=== PATIENT | male | born 1960 | race Caucasian/White ===

== ENCOUNTER → 2016-04-17 | Outpatient (REF) | payer OTHER ==
[~2016-04-17] MED LIST: AMBI10TA PO; ANDR1.624 TD; ASPI1TAB PO; STRITAB PO
[2016-04-17 20:17] LABS: ALBUMIN 4.4 GM/DL (3.2-5.2); ALBUMIN/GLOBULIN RATIO 1.52 (1.00-1.93); ALKALINE PHOSPHATASE 39 U/L (45-117); ALT/SGPT 46 U/L (12-78); ANION GAP 7 MEQ/L (8-16); AST/SGOT 25 U/L (15-37); BILIRUBIN,TOTAL 0.3 MG/DL (0.2-1.0); BLOOD UREA NITROGEN 26 MG/DL (7-18); CALCIUM LEVEL 9.3 MG/DL (8.5-10.1); CARBON DIOXIDE LEVEL 28 MEQ/L (21-32); CHLORIDE LEVEL 106 MEQ/L (98-107); CREATININE FOR GFR 1.46 MG/DL (0.70-1.30); GLOMERULAR FILTRATION RATE 53.4 (>56); GLUCOSE, FASTING 86 MG/DL (70-105); POTASSIUM SERUM 4.1 MEQ/L (3.5-5.1); SODIUM LEVEL 141 MEQ/L (136-145); TOTAL PROTEIN 7.3 GM/DL (6.4-8.2)
== END ==
LOC: M SFHCPLAZ 15:28
PROVIDERS: ATTEND Internal Medicine Infectious Disease
DX: B20 Human immunodeficiency virus [HIV] disease (principal)

== ENCOUNTER → 2016-08-05 | Outpatient (CLI) | payer BC ==
[~2016-08-05] MED LIST changes: +GENV1TAB PO
[2016-08-05 17:54] LABS: BASO % 0.1 % (0.0-1.0); EOS # 0.2 K/mm3 (0.0-0.50); EOS % 2.3 % (0.0-3.0); LARGE UNSTAINED CELL # 0.2 K/mm3 (0.0-0.4); LARGE UNSTAINED CELL % 2.3 % (0.0-4.0); LYMPH # 2.1 K/mm3 (1.5-4.5); LYMPH % 31.7 % (24.0-44.0); MEAN CORPUSCULAR HEMOGLOBIN 31.3 pg (27.0-33.0); MEAN CORPUSCULAR HGB CONC 34.1 g/dl (32.0-36.5); MEAN CORPUSCULAR VOLUME 91.8 fl (80.0-96.0); MONO # 0.4 K/mm3 (0.0-0.8); MONO % 5.6 % (0.0-5.0); NEUTROPHILS # 3.9 K/mm3 (1.8-7.7); NEUTROPHILS % 57.9 % (36.0-66.0); PLATELET COUNT, AUTOMATED 227 k/mm3 (150-450); RED CELL DISTRIBUTION WIDTH 12.5 % (11.5-14.5); WHITE BLOOD COUNT 6.8 K/mm3 (4.0-10.0)
[2016-08-05 18:07] LABS: ANION GAP 7 MEQ/L (8-16); BLOOD UREA NITROGEN 18 MG/DL (7-18); CARBON DIOXIDE LEVEL 29 MEQ/L (21-32); CHLORIDE LEVEL 106 MEQ/L (98-107); CREATININE FOR GFR 1.34 MG/DL (0.70-1.30); GLOMERULAR FILTRATION RATE 58.9 (>56); GLUCOSE, FASTING 98 MG/DL (70-105); SODIUM LEVEL 142 MEQ/L (136-145)
[2016-08-05 18:08] LABS: ALBUMIN 4.2 GM/DL (3.2-5.2); ALBUMIN/GLOBULIN RATIO 1.27 (1.00-1.93); ALKALINE PHOSPHATASE 36 U/L (45-117); ALT/SGPT 40 U/L (12-78); AST/SGOT 18 U/L (15-37); BILIRUBIN,TOTAL 0.3 MG/DL (0.2-1.0); CALCIUM LEVEL 9.3 MG/DL (8.5-10.1); TOTAL PROTEIN 7.5 GM/DL (6.4-8.2)
[2016-08-05 19:08] LABS: ERYTHROCYTE SEDIMENTATION RATE 3 mm/hr (0-20)
[2016-08-08 14:16] LABS: Lyme Disease IgG/IgM Antibodie <0.91 ISR (0.00-0.90); Lyme Disease IgM Ab Quantitati <0.80 index (0.00-0.79)
== END ==
LOC: M WUC 14:37
PROVIDERS: ATTEND Internal Medicine Infectious Disease
DX: M25.50 Pain in unspecified joint (principal); R21 Rash and other nonspecific skin eruption; E29.1 Testicular hypofunction
CPT/HCPCS: 36415; 80053; 84402; 84403; 85025; 85652; 86038; 86140; 86200; 86431; 86617; 86780; G0103

== ENCOUNTER → 2016-10-14 | Outpatient (CLI) | payer BC ==
[~2016-10-14] VITALS: Ht 177.8 cm; Wt 74.8 kg
[~2016-10-14] MED LIST changes: +NS 1,000 ML IV ONE; +PROPOFOL 200 MG/20 ML VIAL As Ordered ONE; -STRITAB PO; +STRITAB2 PO
--- NOTE | 2016-10-14 11:17 | ROOR ---
Patient Name: Jose Mohan Procedure Date: 10/14/2016 10:59 AM Date of : 1960 Age: 56 Room: [facility] Gender: Male Note Status: Finalized Procedure: Flexible Sigmoidoscopy Indications: surveillance/Personal history of anal/rectal condyloma. Providers: Rosales ROQUE MD Referring MD: Patsy PHAM MD. Requesting Provider: Medicines: Monitored Anesthesia Care Complications: No immediate complications. Procedure: Pre-Anesthesia Assessment: - The heart rate, respiratory rate, oxygen saturations, blood pressure, adequacy of pulmonary ventilation, and response to care were monitored throughout the procedure. The Colonoscope was introduced through the anus and advanced to 20 cm from the anal verge. The flexible sigmoidoscopy was accomplished without difficulty. The patient tolerated the procedure well. The quality of the bowel preparation was good. Findings: The perianal and digital rectal examinations were normal. Pertinent negatives include no palpable rectal lesions. The area from 0 to 20 cm proximal to the anus appeared normal. Internal hemorrhoids were found during retroflexion. The hemorrhoids were medium-sized. Impression: - Internal hemorrhoids. - The area from 0 to 20 cm proximal to the anus is normal in forward and retroflexed view. - No specimens collected. Recommendation: - Repeat flexible sigmoidoscopy in 3 years for surveillance. Rosales Roque MD Rosales ROQUE MD 10/14/2016 11:17:03 AM This report has been signed electronically. Number of Addenda: 0 Note Initiated On: 10/14/2016 10:59 AM Estimated Blood Loss: Estimated blood loss: none.
[2016-10-14 11:29] VITALS: BP 129/86
== END | disposition home or self-care (01) ==
LOC: M OPP 09:59
PROVIDERS: ATTEND Internal Medicine Gastroenterology
DX: Z09 Encounter for follow-up examination after completed treatment for conditions other than malignant neoplasm (principal); A63.0 Anogenital (venereal) warts; K64.8 Other hemorrhoids; Z86.018 Personal history of other benign neoplasm; R00.8 Other abnormalities of heart beat; M10.9 Gout, unspecified; Z86.79 Personal history of other diseases of the circulatory system; B20 Human immunodeficiency virus [HIV] disease; Z88.2 Allergy status to sulfonamides; Z79.899 Other long term (current) drug therapy

== ENCOUNTER → 2016-11-20 | Outpatient (REF) | payer BC, OTHER ==
[~2016-11-20] MED LIST changes: -NS 1,000 ML IV ONE; -PROPOFOL 200 MG/20 ML VIAL As Ordered ONE
[2016-11-23 08:06] LABS: CHLAMYDIA PHARYNGEAL APTIMA Negative (Negative); GC PHARYNGEAL APTIMA Negative (Negative)
[2016-11-27 14:13] LABS: CHLAMYDIA RECTAL APTIMA Negative (Negative); GC RECTAL APTIMA Negative (Negative)
== END ==
LOC: M SFHCPLAZ 11:32
PROVIDERS: ATTEND Internal Medicine Infectious Disease
DX: B20 Human immunodeficiency virus [HIV] disease (principal)

== ENCOUNTER → 2017-05-13 | Outpatient (CLI) | payer BC, OTHER ==
[2017-05-13 20:42] LABS: ALBUMIN 4.5 GM/DL (3.2-5.2); ALBUMIN/GLOBULIN RATIO 1.41 (1.00-1.93); ALKALINE PHOSPHATASE 39 U/L (45-117); ALT/SGPT 47 U/L (12-78); ANION GAP 5 MEQ/L (8-16); AST/SGOT 29 U/L (7-37); BILIRUBIN,TOTAL 0.4 MG/DL (0.2-1.0); BLOOD UREA NITROGEN 21 MG/DL (7-18); CALCIUM LEVEL 9.6 MG/DL (8.5-10.1); CARBON DIOXIDE LEVEL 32 MEQ/L (21-32); CHLORIDE LEVEL 103 MEQ/L (98-107); CREATININE FOR GFR 1.31 MG/DL (0.70-1.30); GLOMERULAR FILTRATION RATE > 60.0 (>56); GLUCOSE, FASTING 91 MG/DL (70-100); POTASSIUM SERUM 4.1 MEQ/L (3.5-5.1); SODIUM LEVEL 140 MEQ/L (136-145); TOTAL PROTEIN 7.7 GM/DL (6.4-8.2)
[2017-05-18 14:21] LABS: % CD8 Pos Lymph 39.9 % (12.0-35.5); %CD4 Pos Lymphs 38.2 % (30.8-58.5); ABS Eosinophils 0.1 x10E3/uL (0.0-0.4); ABS Lymphs 2.5 x10E3/uL (0.7-3.1); ABS Monocytes 0.7 x10E3/uL (0.1-0.9); ABS Neutophils 3.4 x10E3/uL (1.4-7.0); Abs CD4 Helper 955 /uL (359-1519); Abs CD8 Suppres 998 /uL (109-897); CD4/CD8 Ratio 0.96 (0.92-3.72); Eosinophils 1 % (Not Estab.); HCT 43.5 % (37.5-51.0); HGB 14.5 g/dL (13.0-17.7); HIV-1 RNA PCR QUANT 1 LC162545 <20 copies/mL (.); Immature Grans 0 % (Not Estab.); Lymphocytes 37 % (Not Estab.); MCH 30.5 pg (26.6-33.0); MCHC 33.3 g/dL (31.5-35.7); MCV 91 fL (79-97); Monocytes 11 % (Not Estab.); Neutrophils 51 % (Not Estab.); Platelets 190 x10E3/uL (150-379); RBC 4.76 x10E6/uL (4.14-5.80); RDW 13.7 % (12.3-15.4); WBC 6.7 x10E3/uL (3.4-10.8)
== END ==
LOC: M WUC 16:16
DX: B20 Human immunodeficiency virus [HIV] disease (principal)
CPT/HCPCS: 80053

== ENCOUNTER → 2017-06-09 | Outpatient (REF) | payer BC, OTHER | LOC: M SFHCPLAZ 15:26 | DX: J02.9 Acute pharyngitis, unspecified (principal) | CPT/HCPCS: 87591 ==

== ENCOUNTER → 2017-11-25 | Outpatient (CLI) | payer BC ==
[2017-11-25 17:36] LABS: TOTAL T3 96.9 NG/DL (60.0-181.0)
[2017-11-25 17:47] LABS: ALBUMIN 4.2 GM/DL (3.2-5.2); ALBUMIN/GLOBULIN RATIO 1.24 (1.00-1.93); ALKALINE PHOSPHATASE 41 U/L (45-117); ALT/SGPT 35 U/L (12-78); ANION GAP 7 MEQ/L (8-16); AST/SGOT 22 U/L (7-37); BILIRUBIN,TOTAL 0.5 MG/DL (0.2-1.0); BLOOD UREA NITROGEN 21 MG/DL (7-18); CALCIUM LEVEL 9.3 MG/DL (8.5-10.1); CARBON DIOXIDE LEVEL 29 MEQ/L (21-32); CHLORIDE LEVEL 104 MEQ/L (98-107); FREE T4 0.89 NG/DL (0.76-1.46); GLOMERULAR FILTRATION RATE > 60.0 (>56); GLUCOSE, FASTING 86 MG/DL (70-100); POTASSIUM SERUM 4.4 MEQ/L (3.5-5.1); SODIUM LEVEL 140 MEQ/L (136-145); TOTAL PROTEIN 7.6 GM/DL (6.4-8.2)
[2017-12-01 00:07] LABS: % CD8 Pos Lymph 42.7 % (12.0-35.5); ABS Eosinophils 0.1 x10E3/uL (0.0-0.4); ABS Lymphs 2.3 x10E3/uL (0.7-3.1); ABS Monocytes 0.4 x10E3/uL (0.1-0.9); Abs CD4 Helper 874 /uL (359-1519); Abs CD8 Suppres 982 /uL (109-897); CD4/CD8 Ratio 0.89 (0.92-3.72); Eosinophils 1 % (Not Estab.); HCT 44.4 % (37.5-51.0); HIV-1 RNA PCR QUANT 2 LC550285 <20 copies/mL (.); Immature Grans 0 % (Not Estab.); Lymphocytes 34 % (Not Estab.); MCH 30.7 pg (26.6-33.0); MCHC 33.8 g/dL (31.5-35.7); MCV 91 fL (79-97); Monocytes 6 % (Not Estab.); Neutrophils 59 % (Not Estab.); Platelets 225 x10E3/uL (150-379); RBC 4.88 x10E6/uL (4.14-5.80); RDW 13.7 % (12.3-15.4); WBC 6.8 x10E3/uL (3.4-10.8)
== END ==
LOC: M WUC 14:22
DX: B20 Human immunodeficiency virus [HIV] disease (principal); E04.1 Nontoxic single thyroid nodule
CPT/HCPCS: 84443

== ENCOUNTER → 2017-12-31 | Outpatient (REF) | payer BC | LOC: M LAB REF 15:52 | DX: E04.1 Nontoxic single thyroid nodule (principal) | CPT/HCPCS: 88173 ==

== ENCOUNTER → 2018-03-17 | Outpatient (REF) | payer BC, OTHER | LOC: M SFHCPLAZ 15:17 | DX: A09 Infectious gastroenteritis and colitis, unspecified (principal) | CPT/HCPCS: 87507 ==

== ENCOUNTER → 2018-04-22 | Outpatient (REF) | payer BC, OTHER ==
[2018-04-24 15:16] LABS: CHLAMYDIA PHARYNGEAL APTIMA Negative (Negative); GC PHARYNGEAL APTIMA Negative (Negative)
[2018-04-26 10:47] LABS: CHLAMYDIA RECTAL APTIMA Negative (Negative); GC RECTAL APTIMA Negative (Negative)
== END ==
LOC: M SFHCPLAZ 10:17
PROVIDERS: ATTEND Internal Medicine Infectious Disease
DX: B20 Human immunodeficiency virus [HIV] disease (principal)

== ENCOUNTER → 2018-05-03 | Outpatient (CLI) | payer BC, OTHER ==
[2018-05-03 19:03] LABS: ALBUMIN 4.2 GM/DL (3.2-5.2); BILIRUBIN,TOTAL 0.3 MG/DL (0.2-1.0); CALCIUM LEVEL 9.1 MG/DL (8.5-10.1); CHOLESTEROL RISK RATIO 5.555 (<5); CREATININE FOR GFR 1.33 MG/DL (0.70-1.30); POTASSIUM SERUM 4.5 MEQ/L (3.5-5.1); TOTAL PROTEIN 7.4 GM/DL (6.4-8.2)
[2018-05-07 08:07] LABS: % CD8 Pos Lymph 37.8 % (12.0-35.5); %CD4 Pos Lymphs 43.4 % (30.8-58.5); ABS Eosinophils 0.2 x10E3/uL (0.0-0.4); ABS Lymphs 2.5 x10E3/uL (0.7-3.1); ABS Monocytes 0.8 x10E3/uL (0.1-0.9); ABS Neutophils 2.3 x10E3/uL (1.4-7.0); Abs CD4 Helper 1085 /uL (359-1519); Abs CD8 Suppres 945 /uL (109-897); CD4/CD8 Ratio 1.15 (0.92-3.72); Eosinophils 3 % (Not Estab.); HCT 46.1 % (37.5-51.0); HGB 15.3 g/dL (13.0-17.7); HIV-1 RNA BY PCR Negative (Negative); Immature Grans 0 % (Not Estab.); Lymphocytes 43 % (Not Estab.); MCH 30.7 pg (26.6-33.0); MCHC 33.2 g/dL (31.5-35.7); MCV 92 fL (79-97); Monocytes 14 % (Not Estab.); Neutrophils 40 % (Not Estab.); Platelets 247 x10E3/uL (150-379); RBC 4.99 x10E6/uL (4.14-5.80); RDW 13.5 % (12.3-15.4); TESTOSTERONE FREE (DIRECT) 15.2 pg/mL (7.2-24.0); WBC 5.7 x10E3/uL (3.4-10.8)
== END ==
LOC: M WUC 15:18
PROVIDERS: ATTEND Internal Medicine Infectious Disease
DX: B20 Human immunodeficiency virus [HIV] disease (principal); I48.92 Unspecified atrial flutter; E29.1 Testicular hypofunction; Z12.5 Encounter for screening for malignant neoplasm of prostate
CPT/HCPCS: 36415; 80053; 80061; 84402; 84403; 86360; 86480; 87535; G0103

== ENCOUNTER 2018-06-08 06:07 | Day surgery (SDC) | payer BC ==
[~2018-06-08] VITALS: Ht 177.8 cm; Wt 77.6 kg
[2018-06-08] MEDS ORDERED: LIDOCAINE 2% W/EPIN INJ 20ML **PRES FREE As Ordered ONE (06:17)
[2018-06-08] MEDS ORDERED: SODIUM BICARBONATE 8.4% INJ 50MEQ 50 ML VIAL As Ordered ONE (06:17)
[2018-06-08] MEDS ORDERED: TOBRADEX OPHTH OINT 3.5 GM As Ordered ONE (06:18)
[2018-06-08] MEDS ORDERED: POVIDONE-IODINE 5% OPHTH PREP SOL 30ML As Ordered ONE (06:22)
[2018-06-08] MEDS ORDERED: LIDOCAINE 3.5 % 1ML OPHTH TOPICAL GEL OU ONE (07:00)
[2018-06-08] MEDS ORDERED: fentaNYL 100 MCG/2 ML INJECTION (J3010) As Ordered ONE ×2 (07:11→07:34)
[2018-06-08] MEDS ORDERED: ONDANSETRON 4MG/2ML VIAL (J2405) As Ordered ONE (07:12)
[2018-06-08] MEDS ORDERED: dexameTHASONE 4 MG/ML 1ML VIAL (J1100) As Ordered ONE (07:12)
[2018-06-08] MEDS ORDERED: PROPOFOL 200 MG/20 ML VIAL As Ordered ONE ×2 (07:12→07:34)
[2018-06-08] MEDS ORDERED: MIDAZOLAM INJ 2 MG/2 ML VIAL (J2250) As Ordered ONE ×2 (07:12→08:11)
[2018-06-08] MEDS ORDERED: LIDOCAINE 2% INJ 100 MG/5 ML SDV (FOR ANES.) As Ordered ONE (07:12)
[2018-06-08] MEDS ORDERED: ROCURONIUM BROMIDE 50 MG/5 ML VIAL As Ordered ONE (07:17)
[2018-06-08 08:58] VITALS: BP 124/83
--- NOTE | 2018-06-08 14:29 | RO ---
DATE OF PROCEDURE: 06/08/2018 PREPROCEDURE DIAGNOSIS: Ptosis and dermatochalasis both upper lids. POSTPROCEDURE DIAGNOSIS: Ptosis and dermatochalasis both upper lids. PROCEDURE: Ptosis repair and blepharoplasty both upper lids. SURGEON: Dr. Jamaal Mitchell [employer] SCHOOL PROFESSIONAL: None. ANESTHESIA: COMPLICATIONS: None. INDICATION: Heavy lids interfering with daily activities. DESCRIPTION OF PROCEDURE: The patient was brought to the operating room and laid in supine position. both eyes were prepped and draped in a sterile fashion for lid surgery, following which, both upper lids were marked with a sterile marker. Subcutaneous lidocaine 2% and 1:100,000 epinephrine was then injected in both upper lids for local anesthesia. After waiting for a few minutes, the attention was first diverted to the right upper lid where the incision was made with the help of the electrocautery along the premarked margins. The skin was excised. Deeper dissection was carried out to access the medial and lateral fat pads which were excised for identification of the dehisced levator aponeurosis. This aponeurosis was then reattached using #6-0 nylon sutures. Lid position was noted to be excellent. The wound was closed using #6-0 nylon suture. Exactly the same procedure was repeated for the left upper lid. At then of the case, ice packs were applied and the patient was returned to the recovery room in stable condition. Hemostasis throughout the case was obtained as needed with the help of the electrocautery.
== END 2018-06-08 09:06 | disposition home or self-care (01) ==
LOC: M SDC 06:07
PROVIDERS: ATTEND Ophthalmology
DX: H02.403 Unspecified ptosis of bilateral eyelids (principal); H02.831 Dermatochalasis of right upper eyelid; H02.834 Dermatochalasis of left upper eyelid; B20 Human immunodeficiency virus [HIV] disease; I48.92 Unspecified atrial flutter; E03.9 Hypothyroidism, unspecified; A63.0 Anogenital (venereal) warts; Z88.2 Allergy status to sulfonamides; Z79.899 Other long term (current) drug therapy
CPT/HCPCS: 67904; 88302; J2250; J3010

== ENCOUNTER → 2018-06-18 | Outpatient (CLI) | payer BC ==
--- NOTE | 2018-06-24 13:14 | DEXA ---
AP SPINE L1 - L4 1.186 -0.1 -0.1 LT FEMUR TOTAL 0.918 -0.7 -0.8 LT NECK 0.809 -1.7 -1.2 RT FEMUR TOTAL 0.900 -0.9 -1.0 RT NECK 0.830 -1.5 -1.0 TOTAL BODY TOTAL OTHER COMMENTS: Normal bone densitometry of the spine and hips. Normal bone densitometry of the spine. There is low bone density of the left hip based on femoral neck T score -1.7 left. There is low bone density of the right hip based on femoral neck T score -1.5 right. FOLLOW-UP: Recommendation for the next bone density exam: 2 years. ANDRE
== END ==
LOC: M WHC 08:00
PROVIDERS: ATTEND Internal Medicine Infectious Disease
DX: E29.1 Testicular hypofunction (principal); M85.851 Other specified disorders of bone density and structure, right thigh; M85.852 Other specified disorders of bone density and structure, left thigh

== ENCOUNTER → 2018-12-03 | Outpatient (CLI) | payer BC, OTHER ==
[~2018-12-03] MED LIST changes: -ASPI1TAB PO; +ASPI81TA26 PO; +PROHANCE 279.3MG/ML 15ML VIAL (A9576) As Ordered ONE
--- NOTE | 2018-12-03 09:42 | REP ---
MRI of the cervical spine without contrast Indication: DDD. Comparison: CT of the cervical spine of 04/19/2014. Technique: MRI of the cervical spine was performed utilizing sagittal T1 FLAIR, STIR, and T2 weighted imaging as well as axial T1 and T2-weighted imaging. No intravenous contrast was administered. Findings: There is normal alignment and curvature of the cervical spine. Vertebral body heights are maintained. There is heterogeneity of the bone marrow without suspicious focal lesion. There is no bone marrow edema. The visualized spinal cord is normal in signal intensity. The paraspinal soft tissues are within normal limits. Level specific observations: C5-C6: Mild disc bulge. Right uncovertebral joint hypertrophy. No significant spinal canal stenosis or left neural foraminal narrowing . Right neural foraminal narrowing. C6-C7: Mild disc bulge. Ligamentum flavum thickening. No significant spinal canal stenosis or neural foraminal compromise. Remaining disc levels are within normal limits. Impression: Mild cervical spondylosis with right neural foraminal narrowing and C5-C6. Electronically Signed by Helder Arias MD 12/03/2018 09:34 A
== END ==
LOC: M RAD 07:13
PROVIDERS: ATTEND Internal Medicine Infectious Disease
DX: M50.30 Other cervical disc degeneration, unspecified cervical region (principal)

== ENCOUNTER → 2019-05-06 | Outpatient (REF) | payer BC, OTHER ==
[~2019-05-06] MED LIST changes: -PROHANCE 279.3MG/ML 15ML VIAL (A9576) As Ordered ONE
[2019-05-06 19:05] LABS: ALBUMIN 4.4 GM/DL (3.2-5.2); BILIRUBIN,TOTAL 0.5 MG/DL (0.2-1.0); CALCIUM LEVEL 9.5 MG/DL (8.5-10.1); CREATININE FOR GFR 1.36 MG/DL (0.70-1.30); GLOMERULAR FILTRATION RATE 57.3 (>56); POTASSIUM SERUM 3.8 MEQ/L (3.5-5.1)
[2019-05-06 19:07] LABS: APPEARANCE, URINE CLOUDY (CLEAR); BACTERIA, URINE AUTO 1+ (NEGATIVE); BILIRUBIN, URINE AUTO NEGATIVE (NEGATIVE); BLOOD, URINE BLOOD 2+ (NEGATIVE); COLOR, URINE YELLOW (YELLOW); GLUCOSE, URINE (UA) AUTO NEGATIVE (NEGATIVE); KETONE, URINE AUTO NEGATIVE (NEGATIVE); LEUKOCYTE ESTERASE, URINE AUTO 3+ (NEGATIVE); MUCUS, URINE SMALL (NEGATIVE); NITRITE, URINE AUTO POSITIVE (NEGATIVE); PROTEIN, URINE AUTO NEGATIVE (NEGATIVE); RBC, URINE AUTO 10 /HPF (0-3); SPECIFIC GRAVITY URINE AUTO 1.005 (1.002-1.035); SQUAMOUS EPITHELIAL CELL UR AU 0 /HPF (0-6); UROBILINOGEN, URINE AUTO 0.2 mg/dL (0.0-2.0); WBC, URINE AUTO TNTC /HPF (0-3)
[2019-05-06 20:21] LABS: CHLAMYDIA DNA AMPLIFICATION NEGATIVE (NEGATIVE); GC DNA AMPLIFICATION NEGATIVE (NEGATIVE)
[2019-05-09 00:07] LABS: %CD4 Pos Lymphs 39.4 % (30.8-58.5); ABS Eosinophils 0.1 x10E3/uL (0.0-0.4); ABS Lymphs 2.7 x10E3/uL (0.7-3.1); ABS Monocytes 0.8 x10E3/uL (0.1-0.9); Abs CD4 Helper 1064 /uL (359-1519); Abs CD8 Suppres 1134 /uL (109-897); CD4/CD8 Ratio 0.94 (0.92-3.72); Eosinophils 2 % (Not Estab.); HCT 44.1 % (37.5-51.0); HGB 15.1 g/dL (13.0-17.7); Immature Grans 0 % (Not Estab.); Lymphocytes 41 % (Not Estab.); MCH 30.8 pg (26.6-33.0); MCHC 34.2 g/dL (31.5-35.7); MCV 90 fL (79-97); Monocytes 12 % (Not Estab.); Neutrophils 45 % (Not Estab.); Platelets 282 x10E3/uL (150-450); RDW 13.7 % (11.6-15.4); WBC 6.6 x10E3/uL (3.4-10.8)
== END ==
LOC: M SFHCPLAZ 15:29
PROVIDERS: ATTEND Internal Medicine Infectious Disease
DX: B20 Human immunodeficiency virus [HIV] disease (principal); R30.0 Dysuria

== ENCOUNTER → 2019-05-10 | Outpatient (REF) | payer BC, OTHER | LOC: M WUC 18:03 | PROVIDERS: ATTEND Internal Medicine Infectious Disease | DX: B20 Human immunodeficiency virus [HIV] disease (principal) ==

== ENCOUNTER → 2019-06-07 | Outpatient (CLI) | payer BC ==
[2019-06-07 16:20] LABS: C REACTIVE PROTEIN QUANTITATIV 4.02 MG/DL (0.00-0.30); CHOLESTEROL LEVEL 204 MG/DL (<200); CHOLESTEROL RISK RATIO 3.642 (<5); HDL CHOLESTEROL 56 MG/DL (>40); LDL CHOLESTEROL 128 MG/DL (<100); NON-HDL-C 148 MG/DL; RHEUMATOID FACTOR QUANT < 10.0 IU/ML (<15.0); TRIGLYCERIDES LEVEL 99 MG/DL (<150)
[2019-06-07 16:32] LABS: APPEARANCE, URINE CLOUDY (CLEAR); BACTERIA, URINE AUTO NEGATIVE (NEGATIVE); BILIRUBIN, URINE AUTO NEGATIVE (NEGATIVE); BLOOD, URINE BLOOD 2+ (NEGATIVE); COLOR, URINE YELLOW (YELLOW); GLUCOSE, URINE (UA) AUTO NEGATIVE (NEGATIVE); KETONE, URINE AUTO NEGATIVE (NEGATIVE); LEUKOCYTE ESTERASE, URINE AUTO 3+ (NEGATIVE); MUCUS, URINE SMALL (NEGATIVE); NITRITE, URINE AUTO NEGATIVE (NEGATIVE); PROTEIN, URINE AUTO NEGATIVE (NEGATIVE); RBC, URINE AUTO 26 /HPF (0-3); SPECIFIC GRAVITY URINE AUTO 1.009 (1.002-1.035); SQUAMOUS EPITHELIAL CELL UR AU 0 /HPF (0-6); UROBILINOGEN, URINE AUTO 0.2 mg/dL (0.0-2.0); WBC, URINE AUTO TNTC /HPF (0-3)
[2019-06-07 16:46] LABS: TOTAL 25(OH) VITAMIN D 21.1 NG/ML (30.0-100.0)
[2019-06-10 00:08] LABS: ANA (HEP2) Negative (.); Lyme Disease IgG/IgM Antibodie <0.91 ISR (0.00-0.90); Lyme Disease IgM Ab Quantitati <0.80 index (0.00-0.79); TESTOSTERONE FREE (DIRECT) 6.9 pg/mL (7.2-24.0)
== END ==
LOC: M WUC 14:07
PROVIDERS: ATTEND Internal Medicine Infectious Disease
DX: E78.5 Hyperlipidemia, unspecified (principal); Z12.5 Encounter for screening for malignant neoplasm of prostate; M25.50 Pain in unspecified joint; B20 Human immunodeficiency virus [HIV] disease
CPT/HCPCS: 36415; 80061; 81001; 82306; 84402; 84403; 86038; 86140; 86431; 86617; G0103

== ENCOUNTER → 2019-08-09 | Outpatient (REF) | payer BC, OTHER ==
[2019-08-09 18:58] LABS: APPEARANCE, URINE HAZY (CLEAR); BACTERIA, URINE AUTO NEGATIVE (NEGATIVE); BILIRUBIN, URINE AUTO NEGATIVE (NEGATIVE); BLOOD, URINE BLOOD 3+ (NEGATIVE); COLOR, URINE YELLOW (YELLOW); GLUCOSE, URINE (UA) AUTO NEGATIVE (NEGATIVE); KETONE, URINE AUTO NEGATIVE (NEGATIVE); LEUKOCYTE ESTERASE, URINE AUTO TRACE (NEGATIVE); NITRITE, URINE AUTO NEGATIVE (NEGATIVE); PROTEIN, URINE AUTO 1+ mg/dL (NEGATIVE); RBC, URINE AUTO TNTC /HPF (0-3); SPECIFIC GRAVITY URINE AUTO 1.012 (1.002-1.035); SQUAMOUS EPITHELIAL CELL UR AU 0 /HPF (0-6); UROBILINOGEN, URINE AUTO 0.2 mg/dL (0.0-2.0); WBC, URINE AUTO 20 /HPF (0-3)
[2019-08-09 21:05] LABS: CHLAMYDIA DNA AMPLIFICATION NEGATIVE (NEGATIVE); GC DNA AMPLIFICATION NEGATIVE (NEGATIVE)
== END ==
LOC: M SFHCPLAZ 17:30
PROVIDERS: ATTEND Internal Medicine Infectious Disease
DX: R82.998 Other abnormal findings in urine (principal)

== ENCOUNTER → 2019-08-31 | Outpatient (REF) | payer BC, OTHER ==
[2019-08-31 17:22] LABS: APPEARANCE, URINE HAZY (CLEAR); BACTERIA, URINE AUTO NEGATIVE (NEGATIVE); BILIRUBIN, URINE AUTO NEGATIVE (NEGATIVE); BLOOD, URINE BLOOD 3+ (NEGATIVE); COLOR, URINE YELLOW (YELLOW); GLUCOSE, URINE (UA) AUTO NEGATIVE (NEGATIVE); KETONE, URINE AUTO NEGATIVE (NEGATIVE); LEUKOCYTE ESTERASE, URINE AUTO TRACE (NEGATIVE); NITRITE, URINE AUTO NEGATIVE (NEGATIVE); PROTEIN, URINE AUTO NEGATIVE (NEGATIVE); RBC, URINE AUTO TNTC /HPF (0-3); SPECIFIC GRAVITY URINE AUTO 1.011 (1.002-1.035); SQUAMOUS EPITHELIAL CELL UR AU 0 /HPF (0-6); UROBILINOGEN, URINE AUTO 0.2 mg/dL (0.0-2.0); WBC, URINE AUTO 13 /HPF (0-3)
== END ==
LOC: M SMT 16:31
PROVIDERS: ATTEND Nurse Practitioner Women's Health
DX: R31.0 Gross hematuria (principal)

== ENCOUNTER → 2019-09-06 | Outpatient (CLI) | payer BC, OTHER ==
[2019-09-06 17:20] LABS: BLOOD UREA NITROGEN 17 MG/DL (7-18); CALCIUM LEVEL 9.4 MG/DL (8.5-10.1); CARBON DIOXIDE LEVEL 29 MEQ/L (21-32); CHLORIDE LEVEL 104 MEQ/L (98-107); CREATININE FOR GFR 1.25 MG/DL (0.70-1.30); GLOMERULAR FILTRATION RATE > 60.0 (>56); GLUCOSE, FASTING 72 MG/DL (70-100); SODIUM LEVEL 139 MEQ/L (136-145)
== END ==
LOC: M WUC 14:42
PROVIDERS: ATTEND Nurse Practitioner Women's Health
DX: R31.0 Gross hematuria (principal)

== ENCOUNTER → 2019-09-20 | Outpatient (CLI) | payer BC ==
[~2019-09-20] MED LIST changes: +BIKT1TAB PO; +SILD100T PO
--- NOTE | 2019-09-20 17:09 | REP ---
Clinical: Preoperative assessment Comparison: 12/18/2014 . Technique: PA and lateral. Findings: The mediastinum and cardiac silhouette are normal. The lung smith are clear and without acute consolidation, effusion, or pneumothorax. The skeletal structures are intact and normal. Impression: 1. No acute cardiopulmonary process. Electronically Signed by Ramiro Senior MD 09/20/2019 05:01 P
[2019-09-20 17:24] LABS: HEMATOCRIT 44.4 % (42.0-52.0); HEMOGLOBIN 15.1 g/dl (13.5-17.5); MEAN CORPUSCULAR HEMOGLOBIN 30.8 pg (27.0-33.0); MEAN CORPUSCULAR VOLUME 90.6 fl (80.0-96.0); PLATELET COUNT, AUTOMATED 239 10^3/uL (150-450); WHITE BLOOD COUNT 6.9 10^3/uL (4.0-10.0)
[2019-09-20 17:36] LABS: APPEARANCE, URINE CLEAR (CLEAR); BACTERIA, URINE AUTO NEGATIVE (NEGATIVE); BILIRUBIN, URINE AUTO NEGATIVE (NEGATIVE); BLOOD, URINE BLOOD 1+ (NEGATIVE); COLOR, URINE YELLOW (YELLOW); GLUCOSE, URINE (UA) AUTO NEGATIVE (NEGATIVE); KETONE, URINE AUTO NEGATIVE (NEGATIVE); LEUKOCYTE ESTERASE, URINE AUTO TRACE (NEGATIVE); NITRITE, URINE AUTO NEGATIVE (NEGATIVE); PROTEIN, URINE AUTO NEGATIVE (NEGATIVE); RBC, URINE AUTO 11 /HPF (0-3); SPECIFIC GRAVITY URINE AUTO 1.015 (1.002-1.035); SQUAMOUS EPITHELIAL CELL UR AU 0 /HPF (0-6); UROBILINOGEN, URINE AUTO 0.2 mg/dL (0.0-2.0); WBC, URINE AUTO 3 /HPF (0-3)
[2019-09-20 17:40] LABS: INR 0.95; PROTHROMBIN TIME 12.4 SECONDS (11.8-14.0)
[2019-09-20 17:41] LABS: PARTIAL THROMBOPLASTIN TIME 29.5 SECONDS (25.0-38.4)
[2019-09-20 17:53] LABS: BLOOD UREA NITROGEN 19 MG/DL (7-18); CARBON DIOXIDE LEVEL 28 MEQ/L (21-32); CHLORIDE LEVEL 105 MEQ/L (98-107); CREATININE FOR GFR 1.14 MG/DL (0.70-1.30); GLOMERULAR FILTRATION RATE > 60.0 (>56); GLUCOSE, FASTING 97 MG/DL (70-100); POTASSIUM SERUM 3.8 MEQ/L (3.5-5.1); SODIUM LEVEL 139 MEQ/L (136-145)
== END ==
LOC: M WUC 15:10
PROVIDERS: ATTEND Nurse Practitioner Women's Health
DX: Z01.812 Encounter for preprocedural laboratory examination (principal); N20.0 Calculus of kidney

== ENCOUNTER → 2019-09-23 | Outpatient (CLI) | payer BC, OTHER | LOC: M LABSMTC 09:09 | PROVIDERS: ATTEND Anesthesiology | DX: Z03.818 Encounter for observation for suspected exposure to other biological agents ruled out (principal); Z11.59 Encounter for screening for other viral diseases | CPT/HCPCS: C9803; U0003 ==

== ENCOUNTER 2019-09-26 11:15 | Day surgery (SDC) | payer BC ==
[~2019-09-26] VITALS: Ht 177.8 cm; Wt 74.8 kg
[~2019-09-26 11:15] MED LIST changes: +LR 1,000 ML IV ONE; +ceFAZolin SOD 2 GM in IV 1 EA IV ONE
[2019-09-26] MEDS ORDERED: fentaNYL 100 MCG/2 ML INJECTION (J3010) As Ordered ONE (12:16)
[2019-09-26] MEDS ORDERED: ISOVUE-300 61% 50ML VIAL As Ordered ONE (12:41)
[2019-09-26] MEDS ORDERED: propofoL 200 MG/20 ML VIAL As Ordered ONE (13:23)
[2019-09-26] MEDS ORDERED: LIDOCAINE 2% 100MG/5ML SDV (FOR ANES.) As Ordered ONE (13:23)
[2019-09-26] MEDS ORDERED: ONDANSETRON 4MG/2ML VIAL As Ordered ONE (13:24)
[2019-09-26] MEDS ORDERED: ePHEDrine SULFATE 25 MG/5 ML(5MG/ML) SYRINGE As Ordered ONE (14:04)
[2019-09-26] MEDS ORDERED: MIDAZOLAM INJ 2MG/2ML VIAL (J2250 PER 1MG) As Ordered ONE (14:52)
[2019-09-26] MEDS ORDERED: ONDANSETRON 4MG/2ML VIAL IV PRN (15:15)
[2019-09-26] MEDS ORDERED: fentaNYL 100 MCG/2 ML INJECTION (J3010) IV PRN (15:15)
[2019-09-26] MEDS ORDERED: LR 1,000 ML IV SCH (15:15)
[2019-09-26] MEDS ORDERED: PERCOCET 5MG/325MG TAB PO PRN (15:30)
[2019-09-26 16:55] VITALS: BP 133/77
--- NOTE | 2019-09-26 23:15 | REP ---
C-ARM VIEWS DURING RIGHT URETERAL STENT PLACEMENT: Two C-arm views are performed. Right pelvicalyceal system is partially opacified with contrast. Right ureteral stent is placed with the proximal end coiled in the right pelvicalyceal system superiorly and the distal end coiled in the urinary bladder. 34 seconds fluoroscopy times utilized. Electronically Signed by Jairo Proctor MD 09/28/2019 03:53 P
--- NOTE | 2019-09-28 11:49 | RO ---
DATE OF PROCEDURE: 09/26/2019 PREPROCEDURE DIAGNOSIS: Right kidney stone. POSTPROCEDURE DIAGNOSIS: Right kidney stone. PROCEDURE: Cystoscopy, right ureteroscopy with laser lithotripsy and basket extraction of stones, right retrograde pyelogram with intraoperative interpretation of images, right ureteral stent placement. SURGEON: Kenan Chavis MD SEWER PIPE PRESS OPERATOR: None. ANESTHESIA: General. OPERATIVE INDICATIONS: This is a 59-year-old male who was found to have an approximately 1.5 cm right ureteropelvic junction stone. He was brought to the operating room today for treatment. DESCRIPTION OF PROCEDURE: The patient was brought to the operating room, and general anesthesia was induced. Prophylactic antibiotics were infused. He was then placed in the dorsal lithotomy position and prepped and draped in the usual sterile fashion. A rigid cystoscope was inserted into the urethral meatus and advanced into the bladder. A guidewire was advanced up the right collecting system. A ureteral access sheath was advanced up the right collecting system. I went up the access sheath with the flexible ureteroscope; and within the right renal pelvis, the 1.5 cm stone was seen. This stone was then fragmented into smaller pieces using a 272 micron laser fiber, and then all the fragments were removed using a basket. A retrograde pyelogram was performed, and it was notable for mild to moderate right hydronephrosis with no extravasation. I then withdrew the ureteroscope, along with the access sheath, and noticed no stones were seen inside the ureter. I utilized the wire to advance a 6-[place] x 22-32-cm double J ureteral stent into the right collecting system. The wire was removed, and there were adequate curls of the stent in the right renal pelvis and in the bladder. The bladder was emptied of all fluids, and this marked the conclusion of the procedure. The patient was taken out of the dorsal lithotomy position, awakened from anesthesia, and transported to the recovery room in stable condition. ESTIMATED BLOOD LOSS: 10 mL. COMPLICATIONS: None. SPECIMENS: Kidney stone fragments. PLAN: The patient will followup in the clinic in approximately 2-3 weeks for stent removal.
[2019-10-11 16:09] LABS: CA Oxalate Dihy 20 % (.); Ca Ox Monohydrate 60 % (.); Size 5x3 mm (.)
== END 2019-09-26 17:05 | disposition home or self-care (01) ==
LOC: M SDC 11:15
PROVIDERS: ATTEND Urology
DX: N20.0 Calculus of kidney (principal); Z88.2 Allergy status to sulfonamides
CPT/HCPCS: 52356; 74420; 82365; 88300; C1769; C1894; C2617; J0690; J2250; J2405; J3010; Q9967

== ENCOUNTER → 2019-10-18 | Outpatient (REF) | payer BC, OTHER ==
[~2019-10-18] MED LIST changes: -LR 1,000 ML IV ONE; -ceFAZolin SOD 2 GM in IV 1 EA IV ONE
[2019-10-18 19:19] LABS: APPEARANCE, URINE CLEAR (CLEAR); BACTERIA, URINE AUTO NEGATIVE (NEGATIVE); BILIRUBIN, URINE AUTO NEGATIVE (NEGATIVE); BLOOD, URINE BLOOD 2+ (NEGATIVE); COLOR, URINE STRAW (YELLOW); GLUCOSE, URINE (UA) AUTO NEGATIVE (NEGATIVE); KETONE, URINE AUTO NEGATIVE (NEGATIVE); LEUKOCYTE ESTERASE, URINE AUTO 1+ (NEGATIVE); NITRITE, URINE AUTO NEGATIVE (NEGATIVE); PROTEIN, URINE AUTO NEGATIVE (NEGATIVE); RBC, URINE AUTO 15 /HPF (0-3); SPECIFIC GRAVITY URINE AUTO 1.011 (1.002-1.035); SQUAMOUS EPITHELIAL CELL UR AU 0 /HPF (0-6); UROBILINOGEN, URINE AUTO 0.2 mg/dL (0.0-2.0); WBC, URINE AUTO 36 /HPF (0-3)
== END ==
LOC: M SMT 17:02
PROVIDERS: ATTEND Nurse Practitioner Women's Health
DX: R30.0 Dysuria (principal)

== ENCOUNTER → 2019-12-24 | Outpatient (CLI) | payer BC, OTHER ==
[2019-12-24 14:01] LABS: ALBUMIN 4.1 GM/DL (3.2-5.2); BILIRUBIN,DIRECT 0.1 MG/DL (0.0-0.2); BILIRUBIN,TOTAL 0.5 MG/DL (0.2-1.0); FREE T4 0.93 NG/DL (0.76-1.46); THYROID STIMULATING HORMONE 1.78 uIU/ML (0.358-3.740); TOTAL PROTEIN 7.3 GM/DL (6.4-8.2)
[2019-12-28 16:09] LABS: Lyme Disease IgG/IgM Antibodie <0.91 ISR (0.00-0.90); Lyme Disease IgM Ab Quantitati <0.80 index (0.00-0.79); TESTOSTERONE FREE (DIRECT) 43.5 pg/mL (7.2-24.0); TESTOSTERONE TOTAL FOR T&D > 1500.0 ng/dL (264-916)
== END ==
LOC: M WUC 09:39
PROVIDERS: ATTEND Internal Medicine Infectious Disease
DX: B20 Human immunodeficiency virus [HIV] disease (principal); E29.1 Testicular hypofunction; R53.83 Other fatigue; E04.1 Nontoxic single thyroid nodule

== ENCOUNTER → 2020-02-21 | Outpatient (CLI) | payer BC | LOC: M LABSMTC 14:04 | PROVIDERS: ATTEND Pediatrics | DX: Z20.828 Contact with and (suspected) exposure to other viral communicable diseases (principal) ==

== ENCOUNTER → 2020-02-28 | Outpatient (CLI) | payer BC ==
--- NOTE | 2020-02-28 15:02 | REP ---
INDICATION: RIGHT SHOULDER PAIN. COMPARISON: None. TECHNIQUE: Coronal oblique T1, T2 fat sat, sagittal oblique T2 fat sat, axial T2 fat sat, gradient echo. FINDINGS: Rotator cuff: There is a partial undersurface tear of the supraspinatus tendon distal aspect. There is a partial full-thickness tear of the infraspinatus tendon distal aspect. Acromioclavicular joint: There are mild hypertrophic degenerative changes of the acromioclavicular joint with mild subchondral marrow edema. Acromion: Type 2 Biceps Tendon: The biceps tendon is within the bicipital groove with mild surrounding fluid. Hill Sach's deformity: None. Deltoid muscle: No abnormal signal. Biceps labral complex: There is fraying and partial tearing at the base of the biceps labral complex. Labrum: The superior labrum appears torn anteriorly near its base. There may be a small tear of the inferior aspect of the posterior labrum. Cartilage: No defects. Bone marrow: Tiny subcortical cystic changes seen in the anterior humeral head. Joint fluid: There is a small joint effusion, with a very small amount of fluid in the subacromial/subdeltoid bursae. IMPRESSION: Partial undersurface tear distal supraspinatus tendon. Partial full-thickness tear distal infraspinatus tendon. Mild hypertrophic degenerative changes acromioclavicular joint with a type 2 acromion. There is fraying of the biceps labral complex and there appears to be a partial tear at the base of the biceps labral complex and adjacent anterior aspect of superior labrum. Suspect very small tear at the tip of the inferior aspect of the posterior labrum. Small joint effusion with very small amount of fluid in the subacromial/subdeltoid bursae. <Electronically signed by Jairo Proctor > 02/28/20 [id number]
== END ==
LOC: M RAD 13:50
PROVIDERS: ATTEND Orthopaedic Surgery
DX: M75.111 Incomplete rotator cuff tear or rupture of right shoulder, not specified as traumatic (principal); M25.411 Effusion, right shoulder

== ENCOUNTER → 2020-03-16 | Outpatient (CLI) | payer SELFPAY | LOC: M LABSMTC 14:23 | PROVIDERS: ATTEND Pediatrics | DX: Z20.828 Contact with and (suspected) exposure to other viral communicable diseases (principal) ==

== ENCOUNTER → 2020-04-19 | Outpatient (CLI) | payer BC, OTHER ==
[2020-04-19 19:04] LABS: ALBUMIN 4.5 GM/DL (3.2-5.2); ALT/SGPT 56 U/L (12-78); BILIRUBIN,TOTAL 0.4 MG/DL (0.2-1.0); BLOOD UREA NITROGEN 21 MG/DL (7-18); CALCIUM LEVEL 9.5 MG/DL (8.5-10.1); CARBON DIOXIDE LEVEL 28 MEQ/L (21-32); CHLORIDE LEVEL 104 MEQ/L (98-107); CREATININE FOR GFR 1.25 MG/DL (0.70-1.30); GLOMERULAR FILTRATION RATE > 60.0 (>56); GLUCOSE, FASTING 76 MG/DL (70-100); POTASSIUM SERUM 4.1 MEQ/L (3.5-5.1); SODIUM LEVEL 139 MEQ/L (136-145); TOTAL PROTEIN 7.9 GM/DL (6.4-8.2)
[2020-04-23 12:07] LABS: % CD8 Pos Lymph 38.7 % (12.0-35.5); %CD4 Pos Lymphs 38.3 % (30.8-58.5); ABS Eosinophils 0.1 x10E3/uL (0.0-0.4); ABS Lymphs 2.3 x10E3/uL (0.7-3.1); ABS Monocytes 0.7 x10E3/uL (0.1-0.9); ABS Neutophils 3.1 x10E3/uL (1.4-7.0); Abs CD4 Helper 881 /uL (359-1519); Abs CD8 Suppres 890 /uL (109-897); CD4/CD8 Ratio 0.99 (0.92-3.72); Eosinophils 1 % (Not Estab.); HCT 48.4 % (37.5-51.0); HGB 16.4 g/dL (13.0-17.7); HIV-1 RNA PCR QUANT 2 LC550285 30 copies/mL (.); HIV-1 RNA PCR QUANT 3 LC550285 1.477 (.); Immature Grans 0 % (Not Estab.); Lymphocytes 37 % (Not Estab.); MCH 31.8 pg (26.6-33.0); MCHC 33.9 g/dL (31.5-35.7); MCV 94 fL (79-97); Monocytes 11 % (Not Estab.); Neutrophils 51 % (Not Estab.); Platelets 242 x10E3/uL (150-450); RBC 5.16 x10E6/uL (4.14-5.80); RDW 12.2 % (11.6-15.4); TESTOSTERONE FREE (DIRECT) 4.5 pg/mL (7.2-24.0); WBC 6.2 x10E3/uL (3.4-10.8)
== END ==
LOC: M WUC 15:47
PROVIDERS: ATTEND Internal Medicine Infectious Disease
DX: N52.9 Male erectile dysfunction, unspecified (principal); B20 Human immunodeficiency virus [HIV] disease

== ENCOUNTER → 2020-05-01 | Outpatient (REF) | payer OTHER, BC | LOC: M SFHCPLAZ 13:39 | PROVIDERS: ATTEND Internal Medicine Infectious Disease | DX: D12.9 Benign neoplasm of anus and anal canal (principal) ==

== ENCOUNTER → 2020-06-05 | Outpatient (CLI) | payer BC, OTHER ==
--- NOTE | 2020-06-05 11:09 | REP ---
INDICATION: THYROID NODULE COMPARISON: None. TECHNIQUE: Proctor scale and color evaluation of the thyroid gland using the linear high frequency transducer. FINDINGS: Isthmus includes 10 x 12 x 6 mm ovoid complex isoechoic nodule with punctate calcifications. Right thyroid lobe measures 3.7 x 1.6 x 1.0 cm and includes 9 x 10 x 8 mm complex solid nodule with rim calcification. Left lobe measures 3.7 x 1.4 x 1.2 cm and appears normal without nodule or abnormality. IMPRESSION: Indeterminate nodule in the isthmus and right thyroid lobe ([id number]). Findings may warrant tissue sampling <Electronically signed by Ramiro Senior > 06/05/20 [id number]
== END ==
LOC: M RAD 09:06
PROVIDERS: ATTEND Internal Medicine Infectious Disease
DX: E04.1 Nontoxic single thyroid nodule (principal)

== ENCOUNTER → 2020-07-10 | Outpatient (REF) | payer BC, OTHER | LOC: M LAB REF 17:07 | PROVIDERS: ATTEND Internal Medicine Endocrinology, Diabetes & Metabolism | DX: E04.2 Nontoxic multinodular goiter (principal) ==

== ENCOUNTER 2020-09-25 13:45 | Day surgery (SDC) | payer BC ==
[~2020-09-25] VITALS: Ht 177.8 cm; Wt 77.5 kg
[~2020-09-25 13:45] MED LIST changes: +NS 1,000 ML IV ONE; +PANT40TA29
[2020-09-25] MEDS ORDERED: fentaNYL 100 MCG/2 ML INJECTION (J3010) As Ordered ONE (13:54)
[2020-09-25] MEDS ORDERED: propofoL 200 MG/20 ML VIAL As Ordered ONE (13:54)
[2020-09-25] MEDS ORDERED: LIDOCAINE 2% 100MG/5ML SDV (FOR ANES.) As Ordered ONE (13:54)
--- NOTE | 2020-09-25 14:16 | ROOR ---
Patient Name: Jose Mohan Procedure Date: 09/25/2020 2:04 PM Date of : 1960 Age: 60 Room: [facility] Gender: Male Note Status: Finalized Procedure: Upper GI endoscopy Indications: Heartburn Providers: Rosales Roque MD Referring MD: Patsy PHAM MD. Requesting Provider: Medicines: Monitored Anesthesia Care Complications: No immediate complications. Procedure: Pre-Anesthesia Assessment: - The heart rate, respiratory rate, oxygen saturations, blood pressure, adequacy of pulmonary ventilation, and response to care were monitored throughout the procedure. The Endoscope was introduced through the mouth, and advanced to the second part of duodenum. The upper GI endoscopy was accomplished without difficulty. The patient tolerated the procedure well. Findings: Very small (insignificant) Hiatal Hernia. The esophagus was normal. The stomach was normal. The examined duodenum was normal. Impression: - Normal esophagus. - Very small hiatal hernia - Otherwise normal stomach. . - Normal examined duodenum. - No specimens collected. Recommendation: - Observe patient's clinical course. - Follow an antireflux regimen. - Continue present medications. Procedure Code(s): --- Professional --- 62839, Esophagogastroduodenoscopy, flexible, transoral; diagnostic, including collection of specimen(s) by brushing or washing, when performed (separate procedure) Diagnosis Code(s): --- Professional --- R12, Heartburn CPT copyright 2019 [employer]. All rights reserved. The codes documented in this report are preliminary and upon panel raiser operator review may be revised to meet current compliance requirements. Rosales Roque MD Rosales Roque MD 09/25/2020 2:16:44 PM Electronically signed by Rosales Roque MD Number of Addenda: 0 Note Initiated On: 09/25/2020 2:04 PM Estimated Blood Loss: Estimated blood loss: none.
[2020-09-25 14:35] VITALS: BP 157/89
== END 2020-09-25 14:42 | disposition home or self-care (01) ==
LOC: M OPP 13:45
PROVIDERS: ATTEND Internal Medicine Gastroenterology
DX: K44.9 Diaphragmatic hernia without obstruction or gangrene (principal); R12 Heartburn; Z79.899 Other long term (current) drug therapy; Z88.2 Allergy status to sulfonamides; Z86.79 Personal history of other diseases of the circulatory system
CPT/HCPCS: 43235; J3010

== ENCOUNTER → 2020-09-27 | Outpatient (REF) | payer BC, OTHER ==
[~2020-09-27] MED LIST changes: -NS 1,000 ML IV ONE
[2020-09-27 14:14] LABS: APPEARANCE, URINE CLEAR (CLEAR); BACTERIA, URINE AUTO NEGATIVE (NEGATIVE); BILIRUBIN, URINE AUTO NEGATIVE (NEGATIVE); BLOOD, URINE BLOOD NEGATIVE (NEGATIVE); COLOR, URINE YELLOW (YELLOW); GLUCOSE, URINE (UA) AUTO NEGATIVE (NEGATIVE); KETONE, URINE AUTO NEGATIVE (NEGATIVE); LEUKOCYTE ESTERASE, URINE AUTO NEGATIVE (NEGATIVE); MUCUS, URINE SMALL (NEGATIVE); NITRITE, URINE AUTO NEGATIVE (NEGATIVE); PROTEIN, URINE AUTO NEGATIVE (NEGATIVE); RBC, URINE AUTO 0 /HPF (0-3); SPECIFIC GRAVITY URINE AUTO 1.012 (1.002-1.035); SQUAMOUS EPITHELIAL CELL UR AU 0 /HPF (0-6); UROBILINOGEN, URINE AUTO 0.2 mg/dL (0.0-2.0); WBC, URINE AUTO 0 /HPF (0-3)
[2020-09-29 03:07] LABS: CHLAMYDIA PHARYNGEAL APTIMA Negative (Negative); CHLAMYDIA RECTAL APTIMA Negative (Negative); GC PHARYNGEAL APTIMA Negative (Negative); GC RECTAL APTIMA Negative (Negative)
== END ==
LOC: M SFHCWAGY 12:59
PROVIDERS: ATTEND Internal Medicine Infectious Disease
DX: A64 Unspecified sexually transmitted disease (principal)

== ENCOUNTER → 2020-11-15 | Outpatient (CLI) | payer BC, OTHER ==
[2020-11-15 15:59] LABS: APPEARANCE, URINE CLEAR (CLEAR); BACTERIA, URINE AUTO NEGATIVE (NEGATIVE); BILIRUBIN, URINE AUTO NEGATIVE (NEGATIVE); BLOOD, URINE BLOOD NEGATIVE (NEGATIVE); COLOR, URINE COLORLESS (YELLOW); GLUCOSE, URINE (UA) AUTO NEGATIVE (NEGATIVE); KETONE, URINE AUTO NEGATIVE (NEGATIVE); LEUKOCYTE ESTERASE, URINE AUTO NEGATIVE (NEGATIVE); NITRITE, URINE AUTO NEGATIVE (NEGATIVE); PROTEIN, URINE AUTO NEGATIVE (NEGATIVE); RBC, URINE AUTO 2 /HPF (0-3); SPECIFIC GRAVITY URINE AUTO 1.002 (1.002-1.035); SQUAMOUS EPITHELIAL CELL UR AU 0 /HPF (0-6); UROBILINOGEN, URINE AUTO 0.2 mg/dL (0.0-2.0); WBC, URINE AUTO 0 /HPF (0-3)
[2020-11-15 16:32] LABS: ALBUMIN 4.2 GM/DL (3.2-5.2); ALT/SGPT 44 U/L (12-78); BILIRUBIN,TOTAL 0.5 MG/DL (0.2-1.0); BLOOD UREA NITROGEN 19 MG/DL (7-18); CALCIUM LEVEL 9.1 MG/DL (8.5-10.1); CARBON DIOXIDE LEVEL 25 MEQ/L (21-32); CHLORIDE LEVEL 107 MEQ/L (98-107); CREATININE FOR GFR 1.41 MG/DL (0.70-1.30); GLOMERULAR FILTRATION RATE 54.8 (>56); GLUCOSE, FASTING 103 MG/DL (70-100); POTASSIUM SERUM 4.2 MEQ/L (3.5-5.1); SODIUM LEVEL 140 MEQ/L (136-145); TOTAL PROTEIN 7.1 GM/DL (6.4-8.2)
[2020-11-15 17:18] LABS: GC DNA AMPLIFICATION NEGATIVE (NEGATIVE)
[2020-11-18 09:11] LABS: % CD8 Pos Lymph 36.2 % (12.0-35.5); %CD4 Pos Lymphs 36.4 % (30.8-58.5); ABS Lymphs 1.4 x10E3/uL (0.7-3.1); ABS Monocytes 0.5 x10E3/uL (0.1-0.9); ABS Neutophils 2.7 x10E3/uL (1.4-7.0); Abs CD4 Helper 510 /uL (359-1519); Abs CD8 Suppres 507 /uL (109-897); CD4/CD8 Ratio 1.01 (0.92-3.72); Eosinophils 1 % (Not Estab.); HCT 40.7 % (37.5-51.0); HGB 13.8 g/dL (13.0-17.7); HIV-1 RNA PCR QUANT 2 LC550285 <20 copies/mL (.); Immature Grans 0 % (Not Estab.); Lymphocytes 30 % (Not Estab.); MCH 30.9 pg (26.6-33.0); MCHC 33.9 g/dL (31.5-35.7); MCV 91 fL (79-97); Monocytes 11 % (Not Estab.); Neutrophils 58 % (Not Estab.); Platelets 194 x10E3/uL (150-450); RBC 4.47 x10E6/uL (4.14-5.80); RDW 13.1 % (11.6-15.4); TESTOSTERONE FREE (DIRECT) 5.3 pg/mL (7.2-24.0); WBC 4.6 x10E3/uL (3.4-10.8)
== END ==
LOC: M WUC 11:38
PROVIDERS: ATTEND Internal Medicine Infectious Disease
DX: E29.1 Testicular hypofunction (principal); B20 Human immunodeficiency virus [HIV] disease
CPT/HCPCS: 36415; 80053; 81001; 84402; 84403; 86360; 86780; 87491; 87536; 87591; G0103

== ENCOUNTER → 2021-04-11 | Outpatient (REF) | payer BC, OTHER ==
[2021-04-11 12:48] LABS: APPEARANCE, URINE CLEAR (CLEAR); BACTERIA, URINE AUTO NEGATIVE (NEGATIVE); BILIRUBIN, URINE AUTO NEGATIVE (NEGATIVE); BLOOD, URINE BLOOD NEGATIVE (NEGATIVE); COLOR, URINE STRAW (YELLOW); GLUCOSE, URINE (UA) AUTO NEGATIVE (NEGATIVE); KETONE, URINE AUTO NEGATIVE (NEGATIVE); LEUKOCYTE ESTERASE, URINE AUTO NEGATIVE (NEGATIVE); NITRITE, URINE AUTO NEGATIVE (NEGATIVE); PROTEIN, URINE AUTO NEGATIVE (NEGATIVE); RBC, URINE AUTO 0 /HPF (0-3); SPECIFIC GRAVITY URINE AUTO 1.009 (1.002-1.035); SQUAMOUS EPITHELIAL CELL UR AU 0 /HPF (0-6); UROBILINOGEN, URINE AUTO 0.2 mg/dL (0.0-2.0); WBC, URINE AUTO 0 /HPF (0-3)
== END ==
LOC: M SFHCPLAZ 12:35
PROVIDERS: ATTEND Internal Medicine Infectious Disease
DX: B20 Human immunodeficiency virus [HIV] disease (principal)

== ENCOUNTER → 2021-04-23 | Outpatient (CLI) | payer BC, OTHER ==
[2021-04-23 16:40] LABS: ALT/SGPT 41 U/L (12-78); BILIRUBIN,TOTAL 0.4 MG/DL (0.2-1.0); BLOOD UREA NITROGEN 12 MG/DL (7-18); CALCIUM LEVEL 9.6 MG/DL (8.8-10.2); CARBON DIOXIDE LEVEL 29 MEQ/L (21-32); CHLORIDE LEVEL 106 MEQ/L (98-107); CHOLESTEROL LEVEL 200 MG/DL (<200); CHOLESTEROL RISK RATIO 4.444 (<5); CREATININE FOR GFR 1.22 MG/DL (0.70-1.30); FREE T4 0.85 NG/DL (0.76-1.46); GLOMERULAR FILTRATION RATE > 60.0 (>49); GLUCOSE, FASTING 112 MG/DL (70-100); HDL CHOLESTEROL 45 MG/DL (>40); LDL CHOLESTEROL 118 MG/DL (<100); NON-HDL-C 155 MG/DL; POTASSIUM SERUM 4.3 MEQ/L (3.5-5.1); SODIUM LEVEL 140 MEQ/L (136-145); TOTAL PROTEIN 7.3 GM/DL (6.4-8.2); TRIGLYCERIDES LEVEL 185 MG/DL (<150)
[2021-04-23 17:20] LABS: HEPATITIS C VIRUS ABY INDEX < 0.0 INDEX (<0.8)
[2021-04-23 17:43] LABS: GC DNA AMPLIFICATION NEGATIVE (NEGATIVE)
== END ==
LOC: M WUC 13:00
PROVIDERS: ATTEND Internal Medicine Infectious Disease
DX: B20 Human immunodeficiency virus [HIV] disease (principal); E29.1 Testicular hypofunction; Z11.3 Encounter for screening for infections with a predominantly sexual mode of transmission; Z13.220 Encounter for screening for lipoid disorders

== ENCOUNTER → 2021-04-23 | Outpatient (CLI) | payer BC, OTHER ==
[2021-04-23 16:43] LABS: FREE T4 0.81 NG/DL (0.76-1.46); THYROID STIMULATING HORMONE 1.94 uIU/ML (0.358-3.740)
== END ==
LOC: M WUC 13:03
PROVIDERS: ATTEND Internal Medicine Endocrinology, Diabetes & Metabolism
DX: E04.2 Nontoxic multinodular goiter (principal)

== ENCOUNTER → 2021-05-16 | Outpatient (REF) | payer OTHER, BC ==
[2021-05-16 12:49] LABS: GC DNA AMPLIFICATION NEGATIVE (NEGATIVE)
[2021-05-18 15:07] LABS: CHLAMYDIA PHARYNGEAL APTIMA Negative (Negative); GC PHARYNGEAL APTIMA Negative (Negative)
[2021-05-18 23:10] LABS: CHLAMYDIA RECTAL APTIMA Negative (Negative); GC RECTAL APTIMA Negative (Negative)
== END ==
LOC: M SFHCPLAZ 09:51
PROVIDERS: ATTEND Internal Medicine Infectious Disease
DX: Z11.3 Encounter for screening for infections with a predominantly sexual mode of transmission (principal)

== ENCOUNTER → 2021-10-23 | Outpatient (REF) | payer BC, OTHER ==
[2021-10-23 15:08] LABS: BASO % 0.4 % (0.0-1.0); EOS # 0.1 10^3/uL (0.0-0.5); EOS % 1.4 % (0.0-3.0); HEMOGLOBIN 15.2 g/dl (13.5-17.5); LYMPH # 2.1 10^3/uL (1.5-5.0); LYMPH % 36.4 % (24.0-44.0); MEAN CORPUSCULAR HEMOGLOBIN 31.5 pg (27.0-33.0); MEAN CORPUSCULAR HGB CONC 33.8 g/dl (32.0-36.5); MEAN CORPUSCULAR VOLUME 93.2 fl (80.0-96.0); MONO # 0.5 10^3/uL (0.0-0.8); MONO % 8.8 % (2.0-8.0); NEUTROPHILS % 52.6 % (36.0-66.0); PLATELET COUNT, AUTOMATED 243 10^3/uL (150-450); RED BLOOD COUNT 4.83 10^6/uL (4.30-6.10); WHITE BLOOD COUNT 5.7 10^3/uL (4.0-10.0)
[2021-10-23 17:10] LABS: TOTAL 25(OH) VITAMIN D 29.4 NG/ML (30.0-100.0)
[2021-10-23 18:00] LABS: MONO SCRN NEGATIVE (NEGATIVE)
== END ==
LOC: M LAB REF 12:17
PROVIDERS: ATTEND Physician Assistant
DX: R52 Pain, unspecified (principal)

== ENCOUNTER → 2022-02-12 | Outpatient (CLI) | payer BC, OTHER ==
[2022-02-12 19:36] LABS: ALBUMIN 4.1 GM/DL (3.2-5.2); ALT/SGPT 38 U/L (12-78); BILIRUBIN,TOTAL 0.4 MG/DL (0.2-1.0); BLOOD UREA NITROGEN 11 MG/DL (7-18); CALCIUM LEVEL 9.8 MG/DL (8.8-10.2); CARBON DIOXIDE LEVEL 30 MEQ/L (21-32); CHLORIDE LEVEL 104 MEQ/L (98-107); CREATININE FOR GFR 1.29 MG/DL (0.70-1.30); GLOMERULAR FILTRATION RATE > 60.0 (>49); GLUCOSE, FASTING 96 MG/DL (70-100); POTASSIUM SERUM 3.8 MEQ/L (3.5-5.1); SODIUM LEVEL 137 MEQ/L (136-145); TOTAL PROTEIN 7.4 GM/DL (6.4-8.2)
[2022-02-12 20:38] LABS: GC DNA AMPLIFICATION NEGATIVE (NEGATIVE)
[2022-02-17 12:07] LABS: % CD8 Pos Lymph 36.5 % (12.0-35.5); %CD4 Pos Lymphs 40.1 % (30.8-58.5); ABS Eosinophils 0.1 x10E3/uL (0.0-0.4); ABS Lymphs 2.9 x10E3/uL (0.7-3.1); ABS Monocytes 0.8 x10E3/uL (0.1-0.9); ABS Neutophils 4.9 x10E3/uL (1.4-7.0); Abs CD4 Helper 1163 /uL (359-1519); Abs CD8 Suppres 1059 /uL (109-897); Eosinophils 1 % (Not Estab.); HCT 43.6 % (37.5-51.0); HGB 14.9 g/dL (13.0-17.7); HIV-1 RNA PCR QUANT 2 LC550285 <20 copies/mL (.); Immature Grans 0 % (Not Estab.); Lymphocytes 34 % (Not Estab.); MCH 31.3 pg (26.6-33.0); MCHC 34.2 g/dL (31.5-35.7); MCV 92 fL (79-97); Monocytes 9 % (Not Estab.); Neutrophils 56 % (Not Estab.); Platelets 242 x10E3/uL (150-450); RBC 4.76 x10E6/uL (4.14-5.80); RDW 12.3 % (11.6-15.4); WBC 8.7 x10E3/uL (3.4-10.8)
== END ==
LOC: M WUC 15:26
PROVIDERS: ATTEND Internal Medicine Infectious Disease
DX: B20 Human immunodeficiency virus [HIV] disease (principal)

== ENCOUNTER → 2022-04-17 | Outpatient (CLI) | payer BC | LOC: M LABSMTC 09:21 | PROVIDERS: ATTEND Family Medicine | DX: Z20.822 Contact with and (suspected) exposure to COVID-19 (principal) | CPT/HCPCS: 87635; C9803 ==

== ENCOUNTER → 2022-06-23 | Outpatient (CLI) | payer BC, OTHER | LOC: M WHC 15:02 | PROVIDERS: ATTEND Internal Medicine Infectious Disease | DX: E04.1 Nontoxic single thyroid nodule (principal) ==

== ENCOUNTER → 2022-07-24 | Outpatient (REF) | payer BC, OTHER | LOC: M LAB REF 17:49 | PROVIDERS: ATTEND Internal Medicine Endocrinology, Diabetes & Metabolism | DX: E04.2 Nontoxic multinodular goiter (principal) ==

== ENCOUNTER → 2022-08-15 | Outpatient (CLI) | payer BC, OTHER | LOC: M WUC 15:49 | PROVIDERS: ATTEND Internal Medicine Infectious Disease | DX: M79.671 Pain in right foot (principal) ==

== ENCOUNTER → 2022-10-13 | Outpatient (CLI) | payer BC, OTHER ==
[2022-10-13 20:12] LABS: ALBUMIN 4.1 G/DL (3.2-5.2); ALKALINE PHOSPHATASE 44 U/L (46-116); ALT/SGPT 37 U/L (7.0-40); AST/SGOT 24 U/L (<34); BILIRUBIN,TOTAL 0.5 MG/DL (0.3-1.2); BLOOD UREA NITROGEN 18 MG/DL (9-23); CALCIUM LEVEL 10.5 MG/DL (8.3-10.6); CARBON DIOXIDE LEVEL 29 MMOL/L (20-31); CHLORIDE LEVEL 104 MMOL/L (98-107); CREATININE FOR GFR 1.25 MG/DL (0.70-1.30); GLOMERULAR FILTRATION RATE > 60.0 (>49); GLUCOSE, FASTING 71 MG/DL (74-106); POTASSIUM SERUM 4.2 MMOL/L (3.5-5.1); SODIUM LEVEL 138 MMOL/L (136-145); TOTAL PROTEIN 7.1 G/DL (5.7-8.2)
[2022-10-13 21:27] LABS: GC DNA AMPLIFICATION NEGATIVE (NEGATIVE)
[2022-10-15 16:09] LABS: % CD8 Pos Lymph 36.4 % (12.0-35.5); %CD4 Pos Lymphs 43.5 % (30.8-58.5); ABS Eosinophils 0.1 x10E3/uL (0.0-0.4); ABS Monocytes 0.5 x10E3/uL (0.1-0.9); ABS Neutophils 2.9 x10E3/uL (1.4-7.0); Abs CD4 Helper 870 /uL (359-1519); Abs CD8 Suppres 728 /uL (109-897); Eosinophils 2 % (Not Estab.); HCT 45.2 % (37.5-51.0); HIV-1 RNA PCR QUANT 1 LC162545 <20 copies/mL (.); Immature Grans 0 % (Not Estab.); Lymphocytes 36 % (Not Estab.); MCH 31.1 pg (26.6-33.0); MCHC 33.2 g/dL (31.5-35.7); MCV 94 fL (79-97); Monocytes 9 % (Not Estab.); Neutrophils 52 % (Not Estab.); Platelets 268 x10E3/uL (150-450); RBC 4.82 x10E6/uL (4.14-5.80); RDW 12.6 % (11.6-15.4); TESTOSTERONE FREE (DIRECT) 2.6 pg/mL (6.6-18.1); WBC 5.4 x10E3/uL (3.4-10.8)
== END ==
LOC: M WUC 14:58
PROVIDERS: ATTEND Internal Medicine Infectious Disease
DX: B20 Human immunodeficiency virus [HIV] disease (principal); E29.1 Testicular hypofunction

== ENCOUNTER → 2022-12-26 | Outpatient (REF) | payer BC, OTHER ==
[2022-12-26 22:04] LABS: HEMATOCRIT 44.2 % (42.0-52.0); HEMOGLOBIN 14.8 g/dl (13.5-17.5); MEAN CORPUSCULAR HEMOGLOBIN 30.9 pg (27.0-33.0); MEAN CORPUSCULAR HGB CONC 33.5 g/dl (32.0-36.5); MEAN CORPUSCULAR VOLUME 92.3 fl (80.0-96.0); PLATELET COUNT, AUTOMATED 240 10^3/uL (150-450); RED BLOOD COUNT 4.79 10^6/uL (4.30-6.10); WHITE BLOOD COUNT 6.8 10^3/uL (4.0-10.0)
[2022-12-26 22:30] LABS: BLOOD UREA NITROGEN 18 MG/DL (9-23); CALCIUM LEVEL 9.5 MG/DL (8.3-10.6); CARBON DIOXIDE LEVEL 28 MMOL/L (20-31); CHLORIDE LEVEL 106 MMOL/L (98-107); CREATININE FOR GFR 1.27 MG/DL (0.70-1.30); GLOMERULAR FILTRATION RATE > 60.0 (>49); GLUCOSE, FASTING 62 MG/DL (74-106); POTASSIUM SERUM 3.2 MMOL/L (3.5-5.1); SODIUM LEVEL 143 MMOL/L (136-145)
== END ==
LOC: M LAB REF 21:49
PROVIDERS: ATTEND Nurse Practitioner Family
DX: I48.3 Typical atrial flutter (principal)

== ENCOUNTER → 2023-05-26 | Outpatient (CLI) | payer BC, OTHER ==
[2023-05-26 12:12] LABS: HEMATOCRIT 44.8 % (42.0-52.0); HEMOGLOBIN 15.2 g/dl (13.5-17.5); MEAN CORPUSCULAR HEMOGLOBIN 30.3 pg (27.0-33.0); MEAN CORPUSCULAR HGB CONC 33.9 g/dl (32.0-36.5); MEAN CORPUSCULAR VOLUME 89.4 fl (80.0-96.0); PLATELET COUNT, AUTOMATED 218 10^3/uL (150-450); RED BLOOD COUNT 5.01 10^6/uL (4.30-6.10); WHITE BLOOD COUNT 5.7 10^3/uL (4.0-10.0)
[2023-05-26 12:31] LABS: PSA SCREENING 0.41 NG/ML (< 4.00)
[2023-05-26 12:34] LABS: ALBUMIN 4.3 G/DL (3.2-5.2); ALKALINE PHOSPHATASE 40 U/L (46-116); ALT/SGPT 39 U/L (7.0-40); AST/SGOT 30 U/L (<34); BILIRUBIN,TOTAL 0.6 MG/DL (0.3-1.2); BLOOD UREA NITROGEN 18 MG/DL (9-23); CALCIUM LEVEL 9.2 MG/DL (8.3-10.6); CARBON DIOXIDE LEVEL 28 MMOL/L (20-31); CHLORIDE LEVEL 107 MMOL/L (98-107); CREATININE FOR GFR 1.17 MG/DL (0.70-1.30); GLOMERULAR FILTRATION RATE > 60.0 (>49); GLUCOSE, FASTING 105 MG/DL (74-106); POTASSIUM SERUM 4.3 MMOL/L (3.5-5.1); SODIUM LEVEL 140 MMOL/L (136-145); TOTAL PROTEIN 7.2 G/DL (5.7-8.2)
[2023-05-26 12:36] LABS: FOLLICLE STIMULATING HORMONE 5.5 mIU/ML (1.4-18.1); LUTEINIZING HORMONE 5.6 mIU/ML (1.5-9.3); PROLACTIN 4.37 NG/ML (2.1-17.7)
[2023-05-28 15:16] LABS: ESTROGENS TOTAL 98 pg/mL (56-213); SEX HORMONE BINDING GLOBULIN 23.5 nmol/L (19.3-76.4)
== END ==
LOC: M WUC 09:06
PROVIDERS: ATTEND Urology
DX: R79.89 Other specified abnormal findings of blood chemistry (principal)
CPT/HCPCS: 82672; 83001; 83002; 84146; 84270; 84402; 84403; 85027; G0103

== ENCOUNTER → 2023-05-26 | Outpatient (CLI) | payer BC, OTHER ==
[2023-05-26 13:26] LABS: ALBUMIN 4.4 G/DL (3.2-5.2); ALKALINE PHOSPHATASE 41 U/L (46-116); ALT/SGPT 40 U/L (7.0-40); AST/SGOT 29 U/L (<34); BILIRUBIN,TOTAL 0.6 MG/DL (0.3-1.2); BLOOD UREA NITROGEN 19 MG/DL (9-23); CALCIUM LEVEL 9.5 MG/DL (8.3-10.6); CARBON DIOXIDE LEVEL 28 MMOL/L (20-31); CHLORIDE LEVEL 104 MMOL/L (98-107); CHOLESTEROL LEVEL 238 MG/DL (<200); CHOLESTEROL RISK RATIO 4.35 (<5); CREATININE FOR GFR 1.15 MG/DL (0.70-1.30); GLOMERULAR FILTRATION RATE > 60.0 (>49); GLUCOSE, FASTING 106 MG/DL (74-106); HDL CHOLESTEROL 54.7 MG/DL (>40); LDL CHOLESTEROL 134.7 MG/DL (<100); NON-HDL-C 183.3 MG/DL; POTASSIUM SERUM 4.2 MMOL/L (3.5-5.1); SODIUM LEVEL 138 MMOL/L (136-145); TOTAL PROTEIN 7.1 G/DL (5.7-8.2); TRIGLYCERIDES LEVEL 243 MG/DL (<150)
== END ==
LOC: M WUC 09:03
PROVIDERS: ATTEND Internal Medicine Infectious Disease
DX: B20 Human immunodeficiency virus [HIV] disease (principal); E78.5 Hyperlipidemia, unspecified

== ENCOUNTER → 2023-05-27 | Outpatient (REF) | payer BC, OTHER ==
[2023-05-29 15:09] LABS: % CD8 Pos Lymph 37.1 % (12.0-35.5); %CD4 Pos Lymphs 42.4 % (30.8-58.5); ABS Eosinophils 0.1 x10E3/uL (0.0-0.4); ABS Lymphs 2.4 x10E3/uL (0.7-3.1); ABS Monocytes 0.5 x10E3/uL (0.1-0.9); ABS Neutophils 3.4 x10E3/uL (1.4-7.0); Abs CD4 Helper 1018 /uL (359-1519); Abs CD8 Suppres 890 /uL (109-897); CD4/CD8 Ratio 1.14 (0.92-3.72); Eosinophils 1 % (Not Estab.); HCT 43.3 % (37.5-51.0); HGB 14.6 g/dL (13.0-17.7); Immature Grans 0 % (Not Estab.); Lymphocytes 38 % (Not Estab.); MCH 30.3 pg (26.6-33.0); MCHC 33.7 g/dL (31.5-35.7); MCV 90 fL (79-97); Monocytes 7 % (Not Estab.); Neutrophils 54 % (Not Estab.); Platelets 208 x10E3/uL (150-450); RBC 4.82 x10E6/uL (4.14-5.80); RDW 12.7 % (11.6-15.4); WBC 6.4 x10E3/uL (3.4-10.8)
== END ==
LOC: M LABWUC 16:39
PROVIDERS: ATTEND Internal Medicine Infectious Disease
DX: B20 Human immunodeficiency virus [HIV] disease (principal); E78.5 Hyperlipidemia, unspecified

== ENCOUNTER → 2023-09-22 | Outpatient (REF) | payer BC, OTHER ==
[2023-09-22 15:05] LABS: GC DNA AMPLIFICATION NEGATIVE (NEGATIVE)
== END ==
LOC: M SFHCPLAZ 12:33
PROVIDERS: ATTEND Internal Medicine Infectious Disease
DX: Z11.3 Encounter for screening for infections with a predominantly sexual mode of transmission (principal)

== ENCOUNTER → 2024-02-22 | Outpatient (CLI) | payer OTHER, BC ==
[2024-02-22 17:56] LABS: BASO % 0.2 % (0.0-1.0); EOS % 0.5 % (0.0-3.0); HEMATOCRIT 44.7 % (42.0-52.0); HEMOGLOBIN 15.1 g/dl (13.5-17.5); LYMPH # 2.7 10^3/uL (1.5-5.0); LYMPH % 32.4 % (24.0-44.0); MEAN CORPUSCULAR HGB CONC 33.8 g/dl (32.0-36.5); MEAN CORPUSCULAR VOLUME 91.8 fl (80.0-96.0); MONO # 0.7 10^3/uL (0.0-0.8); MONO % 8.7 % (2.0-8.0); NEUTROPHILS # 4.8 10^3/uL (1.5-8.5); NEUTROPHILS % 57.7 % (36.0-66.0); PLATELET COUNT, AUTOMATED 220 10^3/uL (150-450); RED BLOOD COUNT 4.87 10^6/uL (4.30-6.10); WHITE BLOOD COUNT 8.3 10^3/uL (4.0-10.0)
[2024-02-22 18:35] LABS: ALBUMIN 4.2 G/DL (3.2-5.2); ALKALINE PHOSPHATASE 36 U/L (40-129); ALT/SGPT 39 U/L (7.0-40); AST/SGOT 30 U/L (<34); BILIRUBIN,TOTAL 0.6 MG/DL (0.3-1.2); BLOOD UREA NITROGEN 16 MG/DL (9-23); CALCIUM LEVEL 10.1 MG/DL (8.3-10.6); CARBON DIOXIDE LEVEL 29 MMOL/L (20-31); CHLORIDE LEVEL 105 MMOL/L (98-107); CHOLESTEROL LEVEL 270 MG/DL (<200); CHOLESTEROL RISK RATIO 4.39 (<5); CREATININE FOR GFR 1.13 MG/DL (0.70-1.30); GLOMERULAR FILTRATION RATE > 60.0 (>49); GLUCOSE, FASTING 84 MG/DL (74-106); HDL CHOLESTEROL 61.4 MG/DL (>40); LDL CHOLESTEROL 176.2 MG/DL (<100); NON-HDL-C 208.6 MG/DL; SODIUM LEVEL 140 MMOL/L (136-145); TOTAL PROTEIN 7.6 G/DL (5.7-8.2); TRIGLYCERIDES LEVEL 162 MG/DL (<150)
[2024-02-24 14:09] LABS: % CD4+ LYMPHS 40.7 % (30.8-58.5); ABSOLUTE CD4 HELPER 1099 /uL (359-1519); BASOPHILS 1 % (Not Estab.); EOSINOPHILS 0 % (Not Estab.); HCT 47.6 % (37.5-51.0); HGB 15.6 g/dL (13.0-17.7); LYMPHOCYTES 32 % (Not Estab.); LYMPHOCYTES ABSOLUTE 2.7 x10E3/uL (0.7-3.1); MCH 31.1 pg (26.6-33.0); MCHC 32.8 g/dL (31.5-35.7); MCV 95 fL (79-97); MONOCYTES 8 % (Not Estab.); MONOCYTES ABSOLUTE 0.7 x10E3/uL (0.1-0.9); NEUTROPHILS 58 % (Not Estab.); NEUTROPHILS ABSOLUTE 4.9 x10E3/uL (1.4-7.0); PLT 246 x10E3/uL (150-450); RBC 5.01 x10E6/uL (4.14-5.80); RDW 12.7 % (11.6-15.4); WBC 8.4 x10E3/uL (3.4-10.8)
[2024-02-24 16:23] LABS: HIV-1 RNA PCR QUANT 2 NOT DETECTED copies/mL (NOT DETECTED); HIV-1 RNA PCR QUANT 3 NOT DETECTED (NOT DETECTED)
== END ==
LOC: M PLALAB 15:03 → M WUC 15:03
PROVIDERS: ATTEND Internal Medicine Infectious Disease
DX: Z01.818 Encounter for other preprocedural examination (principal); B20 Human immunodeficiency virus [HIV] disease; E78.5 Hyperlipidemia, unspecified

== ENCOUNTER → 2024-07-06 | Outpatient (CLI) | payer OTHER, BC ==
[2024-07-06 14:22] LABS: BASO % 0.5 % (0.0-1.0); EOS # 0.1 10^3/uL (0.0-0.5); EOS % 0.9 % (0.0-3.0); HEMATOCRIT 44.8 % (42.0-52.0); HEMOGLOBIN 15.5 g/dl (13.5-17.5); LYMPH # 2.5 10^3/uL (1.5-5.0); LYMPH % 39.2 % (24.0-44.0); MEAN CORPUSCULAR HEMOGLOBIN 31.7 pg (27.0-33.0); MEAN CORPUSCULAR HGB CONC 34.6 g/dl (32.0-36.5); MEAN CORPUSCULAR VOLUME 91.6 fl (80.0-96.0); MONO # 0.6 10^3/uL (0.0-0.8); MONO % 8.6 % (2.0-8.0); NEUTROPHILS # 3.2 10^3/uL (1.5-8.5); NEUTROPHILS % 50.6 % (36.0-66.0); PLATELET COUNT, AUTOMATED 251 10^3/uL (150-450); RED BLOOD COUNT 4.89 10^6/uL (4.30-6.10); WHITE BLOOD COUNT 6.4 10^3/uL (4.0-10.0)
[2024-07-06 14:53] LABS: ALBUMIN 4.5 G/DL (3.2-5.2); ALKALINE PHOSPHATASE 42 U/L (40-129); ALT/SGPT 34 U/L (7.0-40); AST/SGOT 25 U/L (<34); BILIRUBIN,TOTAL 0.6 MG/DL (0.3-1.2); BLOOD UREA NITROGEN 17 MG/DL (9-23); CALCIUM LEVEL 9.9 MG/DL (8.3-10.6); CARBON DIOXIDE LEVEL 29 MMOL/L (20-31); CHLORIDE LEVEL 104 MMOL/L (98-107); CHOLESTEROL LEVEL 244 MG/DL (<200); CHOLESTEROL RISK RATIO 4.34 (<5); CREATININE FOR GFR 1.18 MG/DL (0.70-1.30); GLOMERULAR FILTRATION RATE > 60.0 (>49); GLUCOSE, FASTING 102 MG/DL (74-106); HDL CHOLESTEROL 56.2 MG/DL (>40); LDL CHOLESTEROL 155.6 MG/DL (<100); NON-HDL-C 187.8 MG/DL; POTASSIUM SERUM 4.3 MMOL/L (3.5-5.1); PSA SCREENING 0.46 NG/ML (< 4.00); SODIUM LEVEL 139 MMOL/L (136-145); TOTAL PROTEIN 7.7 G/DL (5.7-8.2); TRIGLYCERIDES LEVEL 161 MG/DL (<150)
[2024-07-06 14:54] LABS: FREE T4 1.08 NG/DL (0.89-1.76)
[2024-07-06 14:55] LABS: THYROID STIMULATING HORMONE 2.388 uIU/ML (0.55-4.78)
[2024-07-06 15:26] LABS: HEMOGLOBIN A1c 5.1 % (4.0-6.0)
== END ==
LOC: M WUC 12:34
PROVIDERS: ATTEND Nurse Practitioner Family
DX: B20 Human immunodeficiency virus [HIV] disease (principal); I48.92 Unspecified atrial flutter; F51.01 Primary insomnia; N52.9 Male erectile dysfunction, unspecified; E04.1 Nontoxic single thyroid nodule; E78.5 Hyperlipidemia, unspecified; I10 Essential (primary) hypertension; E29.1 Testicular hypofunction; L71.9 Rosacea, unspecified; Z80.42 Family history of malignant neoplasm of prostate
CPT/HCPCS: 36415; 80053; 80061; 83036; 84402; 84403; 84439; 84443; 85025; G0103

== ENCOUNTER → 2024-08-22 | Outpatient (REF) | payer BC, OTHER ==
[~2024-08-22] MED LIST changes: -AMBI10TA PO; +ZOLP-533 PO
[2024-08-22 13:16] LABS: GC DNA AMPLIFICATION NEGATIVE (NEGATIVE)
== END ==
LOC: M SFHCWAGY 09:59
PROVIDERS: ATTEND Internal Medicine Infectious Disease
DX: D12.9 Benign neoplasm of anus and anal canal (principal); Z11.3 Encounter for screening for infections with a predominantly sexual mode of transmission

== ENCOUNTER → 2024-11-08 | Outpatient (CLI) | payer BC ==
[~2024-11-08] MED LIST changes: +AMLO1TAB24 PO; +DOXY20TA6 PO; +GABA-1172 PO; +LOSA100T46 PO
== END ==
LOC: M RAD 16:27
PROVIDERS: ATTEND Orthopaedic Surgery
DX: M17.12 Unilateral primary osteoarthritis, left knee (principal)

== ENCOUNTER → 2025-01-26 | Outpatient (REF) | payer BC, OTHER | LOC: M SFHCCLAY 15:04 | PROVIDERS: ATTEND Nurse Practitioner Family | DX: Z53.9 Procedure and treatment not carried out, unspecified reason (principal) ==

== ENCOUNTER → 2025-03-13 | Outpatient (CLI) | payer BC ==
[2025-03-13 18:55] LABS: ALT/SGPT 41.0 U/L (7.0-40); AST/SGOT 28.0 U/L (<34); CALCIUM LEVEL 10.0 MG/DL (8.3-10.6); CARBON DIOXIDE LEVEL 26.0 MMOL/L (20-31); CHLORIDE LEVEL 105.0 MMOL/L (98-107); CHOLESTEROL LEVEL 133.0 MG/DL (<200); CHOLESTEROL RISK RATIO 2.5 (<5); CREATININE FOR GFR 1.27 MG/DL (0.70-1.30); GLOMERULAR FILTRATION RATE 63.1 (>49); LDL CHOLESTEROL 53.7 MG/DL (<100); NON-HDL-C 79.9 MG/DL; POTASSIUM SERUM 3.9 MMOL/L (3.5-5.1); SODIUM LEVEL 140.0 MMOL/L (136-145); TRIGLYCERIDES LEVEL 131.0 MG/DL (<150)
[2025-03-13 20:14] LABS: ESTIMATED AVERAGE GLUCOSE 111.0 MG/DL (60-110)
== END ==
LOC: M WUC 14:58
PROVIDERS: ATTEND Nurse Practitioner Family
DX: B20 Human immunodeficiency virus [HIV] disease (principal); I48.92 Unspecified atrial flutter; N52.9 Male erectile dysfunction, unspecified; F51.01 Primary insomnia; E04.1 Nontoxic single thyroid nodule; E78.5 Hyperlipidemia, unspecified; I10 Essential (primary) hypertension; E29.1 Testicular hypofunction; L71.9 Rosacea, unspecified; Z80.42 Family history of malignant neoplasm of prostate

== ENCOUNTER → 2025-03-13 | Outpatient (CLI) | payer BC ==
[2025-03-13 18:49] LABS: ALT/SGPT 41.0 U/L (7.0-40); AST/SGOT 28.0 U/L (<34); CALCIUM LEVEL 9.9 MG/DL (8.3-10.6); CARBON DIOXIDE LEVEL 27.0 MMOL/L (20-31); CHLORIDE LEVEL 105.0 MMOL/L (98-107); CREATININE FOR GFR 1.31 MG/DL (0.70-1.30); GLOMERULAR FILTRATION RATE 60.8 (>49); POTASSIUM SERUM 3.9 MMOL/L (3.5-5.1); SODIUM LEVEL 141.0 MMOL/L (136-145)
[2025-03-16 20:24] LABS: % CD4 46 % (30-61); %CD8 34 % (12-42); ABSOLUTE CD4 CELLS 932 cells/uL (490-1740); ABSOLUTE CD8 CELLS 684 cells/uL (180-1170); ABSOLUTE LYMPHOCYTES 2040 cells/uL (850-3900); CD4 CD8 RATIO 1.36 (0.86-5.00)
[2025-03-17 12:17] LABS: HIV-1 RNA PCR QUANT 2 NOT DETECTED copies/mL (NOT DETECTED); HIV-1 RNA PCR QUANT 3 NOT DETECTED (NOT DETECTED)
== END ==
LOC: M WUC 15:01
PROVIDERS: ATTEND Internal Medicine Infectious Disease
DX: M10.9 Gout, unspecified (principal); B20 Human immunodeficiency virus [HIV] disease